=== PATIENT | male | born 1970 ===

== ENCOUNTER 2019-11-18 21:04 | Emergency (ER) | payer SELFPAY ==
--- NOTE | 2019-11-18 21:26 | CT ---
INDICATION: Stroke, altered mental status and right-sided weakness. TECHNIQUE: CT head without contrast. COMPARISON: None. FINDINGS: There is a hyperdense intra-axial collection within the left thalamus measuring 2.0 x 2.7 x 3.0 centimeters consistent with an acute intracranial hemorrhage. The thalamus is expanded and there is 2 millimeters left to right subfalcine shift at level of left thalamus. 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 Mucosal thickening paranasal sinuses. IMPRESSION: 1. Acute intraparenchymal hemorrhage within the left thalamus measuring up to 3.0 centimeters as above. Results called to Dr. Ellison at 2124 on 11/18/[address] all CT scans at this facility use dose modulation, iterative reconstruction, and/or weight-based dosing when appropriate to reduce radiation dose to as low as reasonably achievable. Dictated by Yadiel Palma MD @ Nov 18 2019 9:20PM Signed by Dr. Yadiel Palma @ Nov 18 2019 9:26PM
[2019-11-18] MEDS ORDERED: niCARdipine/Normal Saline 40 MG/200 ML BAG IV SCH (21:30)
[2019-11-18] MEDS ORDERED: Labetalol 100 MG/20 ML MDV ONE (21:33)
[2019-11-18] MEDS ORDERED: Labetalol 100 MG/20 ML MDV IVPUSH ONE (21:34)
--- NOTE | 2019-11-18 21:35 | EDM.PDOC ---
ED HPI GENERAL MEDICAL PROBLEM - General Chief Complaint: Neuro Symptoms/Deficits Stated Complaint: EMS ARRIVAL - STROKE CODE Time Seen by Provider: 11/18/19 21:34 Source of Information: Reports: Patient History Limitations: Reports: No Limitations - History of Present Illness INITIAL COMMENTS - FREE TEXT/NARRATIVE: Patient is 49-year-old male past medical history of hypertension presenting with a chief complaint of strokelike symptoms. Onset of the symptoms is approximately 2 hours ago. Symptoms started while the patient was driving his car back from work. Patient symptoms included right upper extremity weakness demonstrated some confusion while he was on face time with his . His called 911 from [place] and he was brought into the emergency department. Symptoms continue to worsen. No interventions have been performed. History provided by EMS primarily. Pmhx: Hypertension Pshx: None Family Hx: noncontributory Smoking history? no Etoh use? none Drug use? none Review of systems were unable to be obtained due to medical condition. I have reviewed the triage vital signs Const: Well nourished, well developed, appears stated age Eyes: PERRL, no conjunctival injection HENT: NCAT, Neck supple without meningismus CV: RRR, Warm, well-perfused extremities RESP: CTAB, Unlabored respiratory effort GI: soft, non-tender, non-distended, no masses MSK: No gross deformities appreciated Skin: Warm, dry. No rashes Neuro: He was awake and alert but oriented x2. Answering questions inappropriately. Demonstrating right-sided facial droop of the lower face and right upper extremity weakness. Patient had no other noticeable cranial nerve deficits. Left upper extremity and bilateral lower extremities were intact. Psych: Appropriate mood and affect Assessment and plan: Patient is a 49-year-old male presenting with strokelike symptoms with 2-hour of onset. His fingerstick was within normal limits. Brain CBT was immediately performed and demonstrated a left-sided intraparenchymal hemorrhage measuring approximately 2 x 3 x 3 cm with associated 2 mm [id number] shift. This hemorrhages likely secondary to patient's extremely elevated blood pressure. Patient's blood pressure on arrival was extremely high in the 230s over 120s range and labetalol was initiated immediately when returning from CT scan. Nicardipine was ordered however was unavailable in our Pyxis. The flight crew arrived and paramedics had nicardipine which she was initiated on. Patient had no decompensation while in the emergency department and was awake and maintaining a proper airway. His labs were otherwise unremarkable. I spoke with neurology at [facility] as he will require aggressive blood pressure management and they agreed that they would accept the patient. Recommended blood pressure was between 120-160 systolic. Patient will be transferred to [facility] for intensive neurological care and blood pressure management. In addition, I spoke with Dr. Gipson of the emergency room so that they were aware of the patient arriving. I did speak with the patient's via phone to inform her of the patient's condition as well as plan of care. I answered all her questions. Critical Care Procedure Note Authorized and Performed by: MD Clark Total critical care time: Approximately 40 minutes Due to a high probability of clinically significant, life threatening deterioration, the patient required my highest level of preparedness to intervene emergently and I personally spent this critical care time directly and personally managing the patient. This critical care time included obtaining a history; examining the patient; pulse oximetry; ordering and review of studies ; arranging urgent treatment with development of a management plan; evaluation of patient's response to treatment; frequent reassessment; and, discussions with other providers. This critical care time was performed to assess and manage the high probability of imminent, life-threatening deterioration that could result in multi-organ failure. It was exclusive of separately billable procedures and treating other patients and teaching time. Please see MDM section and the rest of the note for further information on patient assessment and treatment. - Related Data Allergies Allergy/AdvReac Type Severity Reaction Status Date / Time No Known Allergies Allergy Verified 11/18/19 21:13 Home Meds: Home Meds hydrALAZINE [Apresoline] 25 mg PO DAILY 11/18/19 [History] Past Medical History HEENT History: Reports: None Cardiovascular History: Reports: Hypertension Respiratory History: Reports: None Gastrointestinal History: Reports: None Genitourinary History: Reports: None Musculoskeletal History: Reports: None Neurological History: Reports: None Psychiatric History: Reports: None Endocrine/Metabolic History: Reports: None Hematologic History: Reports: None Immunologic History: Reports: None Oncologic (Cancer) History: Reports: None Dermatologic History: Reports: None - Infectious Disease History Infectious Disease History: Reports: None - Past Surgical History Head Surgeries/Procedures: Reports: None Social & Family History - Tobacco Use Smoking Status *Q: Unknown Ever Smoked ED [facility] Review of Systems Review Of Systems: See Below ED EXAM, NEURO - Physical Exam Exam: See Below *Q Meaningful Use (ADM) - VTE *Q VTE Criteria *Q: not admitted here Course - Vital Signs Last Recorded V/S: Last Vital Signs Temp 37.1 C 11/18/19 21:07 Pulse 105 H 11/18/19 21:23 Resp 18 11/18/19 21:23 BP 223/112 H 11/18/19 21:23 Pulse Ox 96 11/18/19 21:23 - Orders/Labs/Meds Orders: Active Orders 24 hr Category Date Time Status EKG Documentation Completion [RC] STAT Care 11/18/19 21:06 Active Osorio Catheter Insertion [Insert Urinary Catheter] [OM. Care 11/18/19 22:15 Ordered PC] Q24H Urinary Catheter Assessment [RC] ASDIRECTED Care 11/18/19 22:12 Active niCARdipine/Normal Saline [Cardene 40 MG in NS 200 ML] Med 11/18/19 21:30 Active 40 mg in 200 ml IV TITRATE Medication Orders Nicardipine HCl (Cardene 40 Mg In Ns 200 Ml) 40 mg in 200 mls @ 25 mls/hr IV TITRATE DEEP; Protocol Labs: Laboratory Tests 11/18/19 11/18/19 11/18/19 Range/Units 21:03 21:03 21:03 WBC 16.26 H (4.0-11.0) K/uL RBC 5.00 (4.50-5.90) M/uL Hgb 15.5 (13.0-17.0) g/dL Hct 45.2 (38.0-50.0) % MCV 90.4 (80.0-98.0) fL MCH 31.0 (27.0-32.0) pg MCHC 34.3 (31.0-37.0) g/dL RDW Std Deviation 42.4 (28.0-62.0) fl RDW Coeff of Jany 13 (11.0-15.0) % Plt Count 319 (150-400) K/uL MPV 9.20 (7.40-12.00) fL Neut % (Auto) 88.0 H (48.0-80.0) % Lymph % (Auto) 6.5 L (16.0-40.0) % [place]ami % (Auto) 4.1 (0.0-15.0) % Eos % (Auto) 1.0 (0.0-7.0) % Baso % (Auto) 0.4 (0.0-1.5) % Neut # (Auto) 14.3 H (1.4-5.7) K/uL Lymph # (Auto) 1.1 (0.6-2.4) K/uL [place] # (Auto) 0.7 (0.0-0.8) K/uL Eos # (Auto) 0.2 (0.0-0.7) K/uL Baso # (Auto) 0.1 (0.0-0.1) K/uL Nucleated RBC % 0.0 /100WBC Nucleated RBCs # 0 K/uL INR 1.03 Sodium 139 (136-148) mmol/L Potassium 3.8 (3.5-5.1) mmol/L Chloride 102 (98-107) mmol/L Carbon Dioxide 24.1 (21.0-32.0) mmol/L BUN 15 (7.0-18.0) mg/dL Creatinine 1.2 (0.8-1.3) mg/dL Est Cr Clr Drug Dosing TNP Estimated GFR (MDRD) > 60.0 ml/min Glucose 124 H (74-106) mg/dL Calcium 9.2 (8.5-10.1) mg/dL Total Bilirubin 0.6 (0.2-1.0) mg/dL AST 31 (15-37) IU/L ALT 21 (14-63) IU/L Alkaline Phosphatase 123 H (46-116) U/L Total Protein 8.1 (6.4-8.2) g/dL Albumin 4.5 (3.4-5.0) g/dL Globulin 3.6 (2.6-4.0) g/dL Albumin/Globulin Ratio 1.2 (0.9-1.6) Meds: Medications Generic Name Dose Route Start Last Admin Trade Name Freq PRN Reason Stop Dose Admin Nicardipine HCl 40 mg in 200 mls @ 25 mls/hr 11/18/19 21:30 Cardene 40 Mg In Ns 200 Ml IV TITRATE DEEP Protocol 5 MG/HR Discontinued Medications Generic Name Dose Route Start Last Admin Trade Name Freq PRN Reason Stop Dose Admin Labetalol HCl 20 mg 11/18/19 21:34 11/18/19 21:37 Normodyne IVPUSH 11/18/19 21:35 20 mg ONETIME ONE Administration Protocol Labetalol HCl Confirm 11/18/19 21:33 11/18/19 21:42 Normodyne Administered 11/18/19 21:34 Not Given Dose 100 mg .ROUTE .STK-MED ONE Departure - Departure Time of Disposition: 22:29 Disposition: DC/Tfer to Acute Hospital 02 Clinical Impression: Cerebral hemorrhage - Discharge Information Forms: ED Department Discharge Sepsis Event Note - Evaluation Sepsis Screening Result: No Definite Risk - Focused Exam Vital Signs: Vital Signs Temp Pulse Resp BP Pulse Ox 11/18/19 21:23 105 H 18 223/112 H 96 11/18/19 21:18 103 H 18 202/122 H 96 11/18/19 21:07 37.1 C 106 H 22 H 229/100 H 98 Date Exam was Performed: 11/18/19 Time Exam was Performed: 22:21 - My Orders Last 24 Hours: My Active Orders 11/18/19 21:06 EKG Documentation Completion [RC] STAT 11/18/19 21:30 niCARdipine/Normal Saline [Cardene 40 MG in NS 200 ML] 40 mg in 200 ml IV TITRATE 11/18/19 22:12 Urinary Catheter Assessment [RC] ASDIRECTED 11/18/19 22:15 Osorio Catheter Insertion [Insert Urinary Catheter] [OM.PC] Q24H - Assessment/Plan Last 24 Hours: My Active Orders 11/18/19 21:06 EKG Documentation Completion [RC] STAT 11/18/19 21:30 niCARdipine/Normal Saline [Cardene 40 MG in NS 200 ML] 40 mg in 200 ml IV TITRATE 11/18/19 22:12 Urinary Catheter Assessment [RC] ASDIRECTED 11/18/19 22:15 Osorio Catheter Insertion [Insert Urinary Catheter] [OM.PC] Q24H
[2019-11-18 21:40] LABS: BLOOD UREA NITROGEN,BUN 15 mg/dL (7.0-18.0); CARBON DIOXIDE,CO2 24.1 mmol/L (21.0-32.0); CHLORIDE,CL 102 mmol/L (98-107); GLUCOSE RANDOM 124 mg/dL (74-106); POTASSIUM,K 3.8 mmol/L (3.5-5.1); SODIUM,NA 139 mmol/L (136-148)
== END 2019-11-18 22:00 ==
LOC: MW.ED 21:04
DX: I61.9 Nontraumatic intracerebral hemorrhage, unspecified (principal); I10 Essential (primary) hypertension; Z79.899 Other long term (current) drug therapy
CPT/HCPCS: 36415; 51702; 70450; 80053; 85025; 85610; 93005; 96374; 99291; J3490; 99285-25